=== PATIENT | male | born 1950 | race Caucasian/White ===

== ENCOUNTER 2017-05-13 07:54 | Day surgery (SDC) | payer MEDICARE ==
[~2017-05-13] VITALS: Ht 165.1 cm; Wt 70.5 kg
[~2017-05-13 07:54] MED LIST: AMBI6.25 PO; ASPI81TA82 PO; ATEN-100 PO; BARA1TAB PO; CLOP75TA PO; COMBAER INH; CYMB60CA OR; EPZITAB4 PO; KALETRA200 PO; MIRTA15 PO; OMEG1CAP53 PO; ROSU5 PO; TRIL135C PO; VALA1TAB OR
[2017-05-13 08:00] VITALS: BP 122/69; PULSE 102; RESP 20; TEMP 97.5; O2SAT 97
[2017-05-13] MEDS ORDERED: FURO20TA PO (08:21)
[2017-05-13] MEDS ORDERED: ASPI81CH6 CHEW (08:21)
[2017-05-13] MEDS ORDERED: IPRAAER INH (08:21)
[2017-05-13] MEDS ORDERED: ATOR10TA15 PO (08:21)
[2017-05-13] MEDS ORDERED: CILO100T PO (08:21)
[2017-05-13] MEDS ORDERED: ERGO2000 PO (08:21)
[2017-05-13] MEDS ORDERED: SODI650T PO (08:21)
[2017-05-13] MEDS ORDERED: RILP25 PO (08:21)
[2017-05-13] MEDS ORDERED: VENTAER INH (08:21)
[2017-05-13] MEDS ORDERED: METO1TAB42 PO (08:21)
[2017-05-13] MEDS ORDERED: LISI-519 PO (08:21)
[2017-05-13] MEDS ORDERED: OMEGCAP PO (08:21)
[2017-05-13] MEDS ORDERED: LAMI1TAB8 PO (08:21)
[2017-05-13] MEDS ORDERED: FENO160T PO (08:21)
[2017-05-13] MEDS ORDERED: DULO1CAP PO (08:21)
[2017-05-13] MEDS ORDERED: VALA1TAB PO (08:21)
[2017-05-13] MEDS ORDERED: DOLU1TAB PO (08:21)
[2017-05-13] MEDS ORDERED: CLOP75TA PO (08:21)
[2017-05-13] MEDS ORDERED: ZOLP5TAB3 PO (08:21)
[2017-05-13] MEDS ORDERED: ENTE1TAB PO (08:21)
[2017-05-13] MEDS ORDERED: SODIUM CHLOR 0.9% 1000 ML IV SCH (08:30)
[2017-05-13] MEDS ORDERED: LIDOCAINE HCL 1% 20 ML VIAL ONE (09:06)
[2017-05-13 09:17] LABS: PROTHROMBIN TIME - PATIENT 10.4 SEC (9.8-11.6)
[2017-05-13 09:33] LABS: AUTOMATED NEUTROPHIL # 3.1 TH/MM3 (1.8-7.7); BASOPHIL % 0.4 % (0.0-2.0); EOSINOPHIL # 0.1 TH/MM3 (0-0.4); EOSINOPHIL % 1.4 % (0.0-4.0); HEMATOCRIT 33.8 % (39.0-51.0); HEMOGLOBIN 12.2 GM/DL (13.0-17.0); LYMPH % 10.9 % (9.0-44.0); LYMPHOCYTE # 0.5 TH/MM3 (1.0-4.8); MEAN CELL VOLUME 118.6 FL (80.0-100.0); MEAN PLATELET VOLUME 7.4 FL (7.0-11.0); MONO % 14.6 % (0.0-8.0); MONOCYTE # 0.6 TH/MM3 (0-0.9); NEUT % 72.7 % (16.0-70.0); PLATELET COUNT 299 TH/MM3 (150-450); RED BLOOD COUNT 2.85 MIL/MM3 (4.50-5.90); RED CELL DISTRIBUTION WIDTH 13.1 % (11.6-17.2); WHITE BLOOD COUNT 4.3 TH/MM3 (4.0-11.0)
[2017-05-13 09:35] LABS: MEAN CORPUSCULAR HGB CONC 36.2 % (32.0-36.0)
[2017-05-13] MEDS ORDERED: MIDAZOLAM HCL 2 MG/2 ML VIAL ONE (09:36)
[2017-05-13] MEDS ORDERED: fentaNYL CITRATE 250 MCG/5 ML AMP ONE (09:36)
--- NOTE | 2017-05-13 10:13 | PD.RAD ---
Post Procedure Progress Note Pre Procedure Diagnosis: (1) Nodule of right lung Post Procedure Diagnosis: (1) Nodule of right lung Procedure Date: May 13, 2017 Supervising Radiologist: Maycol Neff Estimated blood loss: 2cc Anesthesia: Local, Conscious Sedation Plan of Activity Patient to Unit: [facility]OP[facility] Patient Condition: Good Additional Comments: CT guided biopsy attempted. The nodule is to small and has to much translation with breathing to accurately target the lesion. Several attempts made to place a canula but pleura was not breached. Full dictated report to follow See PACS Report for procedural detail/treatment Maycol Neff MD May 13, 2017 10:13
[2017-05-13] MEDS ORDERED: oxyCODONE/ACETAMINOPHEN 5 MG/325 MG TAB PO PRN (10:15)
[2017-05-13 10:25] VITALS: BP 107/59; PULSE 100; RESP 18; TEMP 97.6; O2SAT 95
[2017-05-13 10:55] VITALS: BP 101/58; PULSE 95; RESP 18; O2SAT 94
[2017-05-13 11:25] VITALS: BP 103/62; PULSE 90; RESP 18; O2SAT 94
--- NOTE | 2017-05-13 12:18 | RADRPT ---
EXAM DATE/TIME: 05/13/2017 09:47 [facility] COMPARISON: No previous studies available for comparison. INDICATIONS : Right lung mass, possible biopsy. RADIATION DOSE: 10.66 CTDIvol (mGy) MEDICAL HISTORY : Chronic obstructive pulmonary disease. Hypertension. Previous smoker SURGICAL HISTORY : None. ENCOUNTER: Initial ACUITY: 1 day PAIN SCALE: 0/10 LOCATION: chest TECHNIQUE: Volumetric scanning of the chest was performed. Using automated exposure control and adjustment of t he mA and/or kV according to patient size, radiation dose was kept as low as reasonably achievable to obtain optimal diagnostic quality images. DICOM format image data is available electronically for r eview and comparison. Follow-up recommendations for detected pulmonary nodules are based at a minimum on nodule size and pa tient risk factors according to Fleischner Society Guidelines. FINDINGS: Clinical history: The patient is a 66-year-old with a 9 mm nodule in the medial aspect of the right lower lobe. We are requested to perform a percutaneous CT-guided biopsy. The patient was placed on the CT table and prepped and draped in usual sterile fashion. A suitable si te above the lesion was localized. The skin of the back was anesthetized with lidocaine. Multiple att empts were made to direct a Schaffer blunt needle down to a position suitable for biopsy. The pleura w as not breech. Each time the needle was left in the deep subcutaneous tissues. There is approximately 2 cm of translation of this nodule with respiration and as such it cannot be definitively targeted f or biopsy. CONCLUSION: 1. The patient's lesion in the right lung base is not amenable to CT-guided biopsy. Maycol Neff MD on May 13, 2017 at 12:14 Board Certified Radiologist. This report was verified electronically.
--- NOTE | 2017-05-13 13:02 | RADRPT ---
EXAM DATE/TIME: 05/13/2017 12:07 [facility] COMPARISON: No previous studies available for comparison. INDICATIONS : Evaluate for pneumothorax. Post right lung biopsy. MEDICAL HISTORY : Hypertension. Chronic obstructive pulmonary disease. HIV. Hepatitis B. Malignant neoplasm of pros dunn. SURGICAL HISTORY : Right shoulder. ENCOUNTER: Subsequent ACUITY: 1 day PAIN SCORE: 0/10 LOCATION: Bilateral chest FINDINGS: The heart is normal in size. There are chronic interstitial changes. The lungs are otherwise clear. T he visualized bony structures are grossly intact. CONCLUSION: 1. Mild chronic interstitial changes. No acute abnormality identified. Maycol Neff MD on May 13, 2017 at 12:58 Board Certified Radiologist. This report was verified electronically.
[2017-05-13 14:15] VITALS: BP 110/59; PULSE 88; RESP 18; O2SAT 93
== END 2017-05-13 14:25 | disposition home or self-care (01) ==
LOC: HRAD 07:54 → HRIP 07:58 → HRAD 14:25
PROVIDERS: ATTEND Specialist
DX: R91.1 Solitary pulmonary nodule (principal); J44.9 Chronic obstructive pulmonary disease, unspecified; I10 Essential (primary) hypertension; B20 Human immunodeficiency virus [HIV] disease; Z85.46 Personal history of malignant neoplasm of prostate; Z87.891 Personal history of nicotine dependence
CPT/HCPCS: 71045; 71250; 85025; 85610; 85730; J2250; J3010; J7030